=== PATIENT | male | born 1940 | race Caucasian/White ===

== ENCOUNTER 2018-02-24 11:54 | Day surgery (SDC) | payer MEDICARE, OTHER ==
[2018-02-24] MEDS ORDERED: PROPOFOL 10 MG/ML VIAL IV ONE (11:55)
[2018-02-24] MEDS ORDERED: LIDOCAINE 2% MDV (20MG/ML) 20ML VIAL IV ONE (11:55)
--- NOTE | 2018-02-25 13:10 | Operative Note ---
DATE OF SURGERY: 02/24/2018 OPERATION: COLONOSCOPY with cold snare polypectomy. PREOPERATIVE DIAGNOSIS: Personal history of adenomatous polyp. POSTOPERATIVE DIAGNOSES: 1. Ascending colon polyp. 2. Sigmoid diverticulosis. PREPARATION QUALITY: Good to excellent. ESTIMATED BLOOD LOSS: Minimum. SPECIMENS: Ascending colon polyp. COMPLICATIONS: None apparent. PROCEDURE: After informed consent was obtained from the patient, he was placed in the left lateral decubitus position in the endoscopy suite, sedated and monitored by the department of anesthesia. Digital rectal exam was unremarkable. A well-lubricated [id number] colonoscope was inserted into the rectum and advanced to the cecum. The cecum, ileocecal valve, and appendiceal orifice were unremarkable. There was a 4-5 mm sessile polyp in the ascending colon removed with a polypectomy snare. Minimal bleeding was noted at the site. The polyp was retrieved without difficulty. The remainder of the ascending colon, transverse colon, and descending colon were unremarkable. The sigmoid colon demonstrated [id number] diverticular changes. No inflammation was seen. The rectum was unremarkable in forward and in J-turn views. The endoscope was straightened, the rectal ampulla deflated, and the endoscope was removed. RECOMMENDATIONS: I would suggest the patient follow a high-fiber diet and consider use of a fiber supplement such as Citrucel with Benefiber. He will require repeat exam in 5 years for continued surveillance. As always, thank you for allowing me to participate in the healthcare of your patients. CC: MD LARISSA Linares
== END 2018-02-24 13:25 | disposition home or self-care (01) ==
LOC: HOP 11:54
PROVIDERS: ATTEND Internal Medicine Gastroenterology
DX: Z12.11 Encounter for screening for malignant neoplasm of colon (principal); Z86.010 Personal history of colon polyps; Z09 Encounter for follow-up examination after completed treatment for conditions other than malignant neoplasm; D12.2 Benign neoplasm of ascending colon; K57.30 Diverticulosis of large intestine without perforation or abscess without bleeding; I10 Essential (primary) hypertension; E78.00 Pure hypercholesterolemia, unspecified